=== PATIENT | male | born 1985 | race Two or more races ===

== ENCOUNTER 2016-03-09 16:57 | Emergency (ER) | payer SELFPAY ==
[2016-03-09] MEDS ORDERED: PREDNISONE 20 MG TABLET ONE (19:03)
== END 2016-03-09 19:42 | disposition home or self-care (01) ==
LOC: ED 16:57
DX: M21.612 Bunion of left foot (principal); I10 Essential (primary) hypertension; Z79.899 Other long term (current) drug therapy
CPT/HCPCS: 99283 ×2; J7512